=== PATIENT | female | born 1975 | race African-American/Black ===

== ENCOUNTER 2024-02-18 05:40 | Emergency (ER) | payer SELFPAY ==
[~2024-02-18] VITALS: Ht 162.6 cm; Wt 72.0 kg
[2024-02-18 05:44] VITALS: BP 147/103; PULSE 111; RESP 18; TEMP 98.6; O2SAT 99
== END 2024-02-18 06:40 | disposition left against medical advice (07) ==
LOC: ER 05:45
DX: R06.02 Shortness of breath (principal); Z53.21 Procedure and treatment not carried out due to patient leaving prior to being seen by health care provider
CPT/HCPCS: 93005; 99283